=== PATIENT | female | born 1960 | race Caucasian/White ===

== ENCOUNTER 2021-09-08 13:21 | Outpatient (CLI) | payer BC, SELFPAY ==
--- NOTE | 2021-09-08 13:47 | MM_ITS ---
WS: [id number] BILATERAL 3D TOMOSYNTHESIS DIGITAL SCREENING MAMMOGRAPHY WITH CAD CLINICAL INFORMATION: SCREENING HISTORY: Screening mammogram. No current complaints. COMPARISON: None. TECHNIQUE: Bilateral CC and MLO views. FINDINGS: Scattered fibroglandular densities bilaterally. Lucent centered calcification RIGHT breast. A few inc idental punctate calcifications. No suspicious focal mass, asymmetry, calcifications, or architectura l distortion. No evidence of malignancy. MM/[place] [id number] IMPRESSION: BI-RADS: 2-Benign FOLLOW UP: 1 Year Follow-up Recommend return to annual screening mammography.
== END 2021-09-08 13:22 | disposition home or self-care (01) ==
LOC: RADSHAW 13:31
PROVIDERS: PCP Family Medicine; Visit Provider Family Medicine
DX: Z12.31 Encounter for screening mammogram for malignant neoplasm of breast (principal)
CPT/HCPCS: 77063; 77067

== ENCOUNTER 2023-01-23 08:29 | Outpatient (CLI) | payer OTHER, SELFPAY ==
--- NOTE | 2023-01-23 08:40 | MM_ITS ---
WS: [id number] BILATERAL SCREENING DIGITAL TOMOSYNTHESIS MAMMOGRAM WITH CAD HISTORY: SCREENING COMPARISON: 09/08/2021 and 02/20/2019 Bilateral CC and MLO views with tomosynthesis and synthetic mammography submitted. Computer aided det ection analyzed. Breast composition: There are scattered areas of fibroglandular density. No suspicious masses, microc alcifications or architectural distortion. IMPRESSION: MM/[place] [id number] BI-RADS: 1-Negative FOLLOW UP: 1 Year Follow-up
== END 2023-01-23 08:30 | disposition home or self-care (01) ==
PROVIDERS: PCP Family Medicine; Visit Provider Family Medicine
DX: Z12.31 Encounter for screening mammogram for malignant neoplasm of breast (principal)
CPT/HCPCS: 77063; 77067

== ENCOUNTER 2023-02-27 16:26 | Outpatient (CLI) | payer OTHER, SELFPAY ==
--- NOTE | 2023-02-27 16:33 | XRR_ITS ---
PROCEDURE INFORMATION: Exam: XR Chest Exam date and time: 02/27/2023 4:36 PM Age: 62 years old Clinical indication: Cough with hemorrhage; Additional info: Bloody phlegm in the morning TECHNIQUE: Imaging protocol: Radiologic exam of the chest. Views: 2 views. COMPARISON: CT chest w con* [id number] 09/13/2018 9:19 AM FINDINGS: Lungs: Complete atelectasis of the right middle lobe, unchanged from 09/13/2018. No new/acute infiltrates are demonstrated. Pleural spaces: No pleural effusion. No pneumothorax. Heart/Mediastinum: Calcified mediastinal and hilar lymph nodes, consistent with old granulomatous disease. No cardiomegaly noted. Bones/joints: Unremarkable. XR/XR chest 2V* [id number] IMPRESSION: 1. Complete atelectasis of the right middle lobe, unchanged from 09/13/2018. 2. No new/acute infiltrates are demonstrated. 3. Findings of old granulomatous disease are identified.
== END 2023-02-27 16:27 | disposition home or self-care (01) ==
PROVIDERS: PCP Family Medicine; Visit Provider Clinical Nurse Specialist Adult Health
DX: Z00.00 Encounter for general adult medical examination without abnormal findings (principal); R04.2 Hemoptysis; J98.11 Atelectasis
CPT/HCPCS: 71046; 80053; 80061; 85025

== ENCOUNTER → 2023-03-13 09:22 | Outpatient (BNVA) | payer OTHER, SELFPAY | PROVIDERS: PCP Clinical Nurse Specialist Adult Health; Visit Provider Clinical Nurse Specialist Adult Health | DX: Z01.419 Encounter for gynecological examination (general) (routine) without abnormal findings (principal) | CPT/HCPCS: 87624 ==

== ENCOUNTER 2023-09-12 13:25 | Outpatient (CLI) | payer OTHER, SELFPAY ==
--- NOTE | 2023-09-12 14:30 | CTR_ITS ---
PROCEDURE INFORMATION: Exam: CT Chest Without Contrast; Diagnostic Exam date and time: 09/12/2023 2:13 PM Age: 63 years old Clinical indication: Patient HX: --hemoptysis 1 month ago, none now, collasped lung. History of chronic right middle lobe atelectasis. TECHNIQUE: Imaging protocol: Diagnostic computed tomography of the chest without contrast. Radiation optimization: All CT scans at this facility use at least one of these dose optimization techniques: automated exposure control; mA and/or kV adjustment per patient size (includes targeted exams where dose is matched to clinical indication); or iterative reconstruction. COMPARISON: CT angio chest PE 09/17/2018 RADIATION DOSE METRICS: Total DLP (mGy-cm): 245.21 FINDINGS: No new axillary or mediastinal lymphadenopathy identified. Multiple granulomatous calcifications are present within mediastinal and hilar nodes and within the spleen. A few calcified granulomas are seen within the lungs. There is chronic right middle lobe atelectasis secondary to large granulomatous calcification at the origin of the right middle lobe bronchus. No acute pulmonary abnormality identified. No coronary artery calcifications are seen. No pleural or pericardial effusions. No acute osseous abnormality identified. CT/CT chest wo con [id number] IMPRESSION: 1. No acute abnormality detected. 2. Healed granulomatous disease. This is associated with chronic complete atelectasis of right middle lobe secondary to a large granulomatous calcification at the origin of the right middle lobe bronchus.
== END 2023-09-12 13:26 | disposition home or self-care (01) ==
PROVIDERS: PCP Family Medicine; Visit Provider Internal Medicine Pulmonary Disease
DX: R04.2 Hemoptysis (principal); J98.4 Other disorders of lung
CPT/HCPCS: 71250; 94010; 94618; 94726; 94729

== ENCOUNTER → 2023-10-04 14:01 | Outpatient (BNVA) | payer OTHER, SELFPAY | PROVIDERS: PCP Family Medicine; Visit Provider Internal Medicine Pulmonary Disease | DX: R04.2 Hemoptysis (principal); J98.19 Other pulmonary collapse; J45.991 Cough variant asthma | CPT/HCPCS: 36415; 82785; 86003 ==

== ENCOUNTER 2024-02-29 13:51 | Outpatient (CLI) | payer OTHER, SELFPAY ==
--- NOTE | 2024-02-29 13:56 | MM_ITS ---
WS: [id number] SCREENING DIGITAL BREAST TOMOSYNTHESIS MAMMOGRAM WITH CAD HISTORY: SCREENING COMPARISON: 02/04/2013, 09/19/2016, 01/23/2023 and 09/08/2021 Bilateral CC and MLO with tomosynthesis and synthetic mammography submitted. Computer aided detection analyzed. Breast composition: There are scattered areas of fibroglandular density. Increasing nodularity and fo julien asymmetry in the LEFT upper outer quadrant at a mid to posterior depth. Partially obscured focal asymmetries within the area of dense breast tissue. There are 2 asymmetries 1 measuring 1.4 x 0.9 cm and the other 0.6 x 1.1 cm. These are within the area of dense soft tissue and appear more prominent than on prior studies. Recommend additional imaging. Stable focal asymmetry upper outer quadrant RIGH T breast. MM/MM scr BI tomosynthesis [id number] IMPRESSION: BI-RADS: 0 - Incomplete: Need additional imaging evaluation. FOLLOW UP: Need Additional Imaging LEFT breast: Spot compression views (CC and MLO). True ML. Ultrasound to follow if abnormality persists.
== END 2024-02-29 13:52 | disposition home or self-care (01) ==
PROVIDERS: PCP Family Medicine; Visit Provider Family Medicine
DX: Z12.31 Encounter for screening mammogram for malignant neoplasm of breast (principal); R92.323 Mammographic fibroglandular density, bilateral breasts; N64.89 Other specified disorders of breast
CPT/HCPCS: 77063; 77067

== ENCOUNTER 2024-03-26 13:42 | Outpatient (CLI) | payer OTHER, SELFPAY ==
--- NOTE | 2024-03-26 14:10 | US_ITS ---
WS: [id number] ADDITIONAL VIEWS LEFT MAMMOGRAM with tomosynthesis. LEFT BREAST ULTRASOUND HISTORY: abnormal screening mammo Left COMPARISON: 02/29/2024, 01/23/2023 LEFT MAMMOGRAM: Spot compression views and true ML with tomosynthesis and sympathetic mammography. Asymmetry persists in the upper outer quadrant of the LEFT breast. Partially obscured mass measuring 10 x 11 mm of increased density. No distortion. LEFT BREAST ULTRASOUND 2-D and color Doppler imaging submitted. Hypoechoic mass LEFT breast at 2:00, 3 cm from the nipple measures 1.0 x 0.5 x 1.1 cm. This correspon ds to the mammographic abnormality. US/US breast LT limited* [id number] IMPRESSION: BI-RADS: 4- Suspicious Finding - Biopsy Should be Considered FOLLOW UP: Biopsy Recommended Ultrasound-guided biopsy recommended of the solid mass LEFT breast at 2:00. Thi s may be a benign fibroadenoma but due to its solid appearance biopsy should be obtained. Notified Mariama White MD at 03/26/2024 2:37 PM. Message recorded on the [employer] service concerning biopsy.
--- NOTE | 2024-03-26 14:30 | MM_ITS ---
WS: [id number] ADDITIONAL VIEWS LEFT MAMMOGRAM with tomosynthesis. LEFT BREAST ULTRASOUND HISTORY: abnormal screening mammo Left COMPARISON: 02/29/2024, 01/23/2023 LEFT MAMMOGRAM: Spot compression views and true ML with tomosynthesis and sympathetic mammography. Asymmetry persists in the upper outer quadrant of the LEFT breast. Partially obscured mass measuring 10 x 11 mm of increased density. No distortion. LEFT BREAST ULTRASOUND 2-D and color Doppler imaging submitted. Hypoechoic mass LEFT breast at 2:00, 3 cm from the nipple measures 1.0 x 0.5 x 1.1 cm. This correspon ds to the mammographic abnormality. MM/MM diag LT tomosynthesis [id number] IMPRESSION: BI-RADS: 4- Suspicious Finding - Biopsy Should be Considered FOLLOW UP: Biopsy Recommended Ultrasound-guided biopsy recommended of the solid mass LEFT breast at 2:00. Thi s may be a benign fibroadenoma but due to its solid appearance biopsy should be obtained. Notified Mariama White MD at 03/26/2024 2:37 PM. Message recorded on the [facility] service concerning biopsy.
== END 2024-03-26 13:43 | disposition home or self-care (01) ==
LOC: RAD 13:42
PROVIDERS: PCP Family Medicine; Visit Provider Family Medicine
DX: N63.21 Unspecified lump in the left breast, upper outer quadrant (principal)
CPT/HCPCS: 76642; 77061; G0279

== ENCOUNTER 2025-01-31 10:47 | Outpatient (CLI) | payer OTHER, SELFPAY ==
[2025-01-31 12:21] LABS: Hematocrit 39.9 % (36-47); Hemoglobin 12.70 g/dL (11.27-16.99); Mean Corpuscular HGB Conc 31.8 g/dL (30-55); Mean Corpuscular Hemoglobin 26.3 pg (27-33); Mean Corpuscular Volume 82.6 fl (85-98); Nucleated Red Blood Cells % 0 %; Platelet Count 213 10^3/cmm (157-399); Red Blood Count 4.83 10^6/uL (3.85-5.65); White Blood Count 4.72 10^3/uL (3.29-11.43)
[2025-01-31 13:00] LABS: Alanine Aminotransferase 9 U/L (0-33); Albumin Level 4.1 g/dL (3.5-5.2); Alkaline Phosphatase 83 U/L (35-105); Anion Gap 12.4 (5-19); Aspartate Amino Transferase 15 U/L (0-32); Blood Urea Nitrogen 12 mg/dL (8-23); Calcium 9.3 mg/dL (8.5-10.5); Carbon Dioxide 28 mmol/L (22-29); Chloride 102 mmol/L (98-107); Globulin 3.4 g/dL (1.3-4.6); Glucose 93 mg/dL (65-115); Osmolality Calculated 285 mOsm/kg (285-295); Potassium 4.4 mmol/L (3.5-5.1); Sodium 138 mmol/L (136-145); Thyroid Stimulating Hormone 0.54 uIU/mL (0.27-4.20); Total Protein 7.5 g/dL (6.6-8.7)
== END 2025-01-31 10:48 | disposition home or self-care (01) ==
PROVIDERS: PCP Family Medicine; Visit Provider Clinical Nurse Specialist Adult Health
DX: K21.9 Gastro-esophageal reflux disease without esophagitis (principal)
CPT/HCPCS: 36415; 80053; 82248; 84443; 85025

== ENCOUNTER → 2025-02-26 14:08 | Outpatient (BNVA) | payer OTHER, SELFPAY | PROVIDERS: PCP Family Medicine; Visit Provider Clinical Nurse Specialist Adult Health | DX: Z01.419 Encounter for gynecological examination (general) (routine) without abnormal findings (principal) | CPT/HCPCS: 87624 ==

== ENCOUNTER 2025-03-19 14:10 | Outpatient (CLI) | payer OTHER, SELFPAY ==
--- NOTE | 2025-03-19 14:20 | MM_ITS ---
WS: [id number] BILATERAL 3D TOMOSYNTHESIS DIGITAL SCREENING MAMMOGRAPHY WITH CAD CLINICAL INFORMATION: Z12.39 - Encounter for other screening for malignant neop... HISTORY: Screening mammogram. No current complaints. COMPARISON: 2023 TECHNIQUE: Bilateral CC and MLO views. FINDINGS: Scattered fibroglandular densities bilaterally. Lucent centered calcification RIGHT breast. Persistent nodular focal asymmetric densities upper outer LEFT breast. Prior ultrasound demonstrated a hypoechoic solid mass in this area and biopsy was recommended. Recommend LEFT breast diagnostic mammography and ultrasound Unremarkable RIGHT breast MM/MM scr BI tomosynthesis [id number] IMPRESSION: DENSITY: There are scattered areas of fibroglandular density. BI-RADS: 0 - Incomplete: Need additional imaging evaluation. FOLLOW UP: Need Additional Imaging Recommend LEFT breast diagnostic mammography and ultrasound.
== END 2025-03-19 14:11 | disposition home or self-care (01) ==
LOC: RAD 14:11
PROVIDERS: PCP Clinical Nurse Specialist Adult Health; Visit Provider Clinical Nurse Specialist Adult Health
DX: Z12.31 Encounter for screening mammogram for malignant neoplasm of breast (principal); R92.1 Mammographic calcification found on diagnostic imaging of breast; N64.89 Other specified disorders of breast; R92.323 Mammographic fibroglandular density, bilateral breasts
CPT/HCPCS: 77063; 77067